=== PATIENT | female | born 1955 | race Caucasian/White ===

== ENCOUNTER → 2022-12-28 13:34 | Outpatient (BNVA) | payer MEDICARE, MEDICAID, SELFPAY | PROVIDERS: PCP Family Medicine; Visit Provider Internal Medicine | DX: I48.91 Unspecified atrial fibrillation (principal); I10 Essential (primary) hypertension; R06.00 Dyspnea, unspecified; R00.2 Palpitations; R55 Syncope and collapse; R07.9 Chest pain, unspecified; Z79.01 Long term (current) use of anticoagulants; Z87.891 Personal history of nicotine dependence | CPT/HCPCS: 93005; 99204 ==

== ENCOUNTER 2023-02-22 20:00 | Outpatient (CLI) | payer MEDICARE, MEDICAID, SELFPAY | END 2023-02-22 20:01 | disposition home or self-care (01) | LOC: SLEEP 02-23 06:16 | PROVIDERS: PCP Family Medicine; Visit Provider Internal Medicine | DX: G47.30 Sleep apnea, unspecified (principal); G47.10 Hypersomnia, unspecified; I48.91 Unspecified atrial fibrillation; G47.36 Sleep related hypoventilation in conditions classified elsewhere | CPT/HCPCS: 95810 ==